=== PATIENT | female | born 1940 | race Caucasian/White ===

== ENCOUNTER 2016-08-29 21:50 | Emergency (ER) | payer MEDICARE ==
[~2016-08-29] VITALS: Ht 160 cm; Wt 59.0 kg
[2016-08-29 22:04] VITALS: BP 142/82; PULSE 63; RESP 16; O2SAT 98
--- NOTE | 2016-08-29 23:54 | ED.REPORT ---
HPI-Trauma Minor / Fall Date of Service August 29, 2016 ED Provider: Dr. Ehsan Reece D.O. A 75 year old female presents to the ED accompanied by her with head trauma after a ground level fall around 1999 this evening. The patient does not remember the fall but she has problems with her memory at baseline. Her son heard the fall and found her on the bathroom floor. She was evaluated by EMS and found to be awake, alert, and well. She declined transport. The patient then developed general malaise, headache, nausea, and imbalance, so her became concerned. She denies chest pain, SOB, neck pain, or other symptoms. Nursing Notes Stated Complaint: FELL, HIT HEAD Chief Complaint: Multiple Trauma/Fall Nursing Notes Reviewed: Yes Allergies: Coded Allergies: No Known Allergies (Unverified , 08/29/16) General Time Seen by MD: 23:54 Chief Complaint Fall, Head injury Hx Obtained From: Patient, Spouse Arrived By: Walk-in Onset Occurred: 1 - 4 hours ago Symptom Duration: Since onset Location: Head Quality: Painful Severity: Current: Moderate Severity: Maximum: Moderate Pertinent Negative: Relieved by nothing Context: Immunizations Unknown Recent Healthcare: No recent doctor visit Past Medical History Past Medical History Memory problems Past Surgical History None reported Smoking History Unknown if Ever Smoker Social History Other Social History: Good social support Ambulatory Status Independent Review of Systems Review of Systems Note: + Head trauma, imbalance Constitutional: Reports: Malaise, Denies: Fever Respiratory: Denies: Non-productive cough, Shortness of breath Musculoskeletal: Denies: Neck pain Neurologic: Reports: Headache Complete sys rev & neg: except as marked. Cardiovascular: Denies: Chest pain GI: Reports: Nausea, Denies: Diarrhea, Vomiting Physical Exam Initial Vital Signs Vital Signs (First) Date Time Temp Pulse Resp B/P Pulse Ox O2 Delivery O2 Flow Rate FiO2 08/29/16 22:04 36.2 63 16 142/82 98 Room Air Initial VS: Reviewed ENT: Conjunctiva normal, No scleral icterus Respiratory: Breath sounds normal, Clear to auscultation, No respiratory distress Cardiovascular: Regular rate & rhythm, Heart sounds normal Skin: Warm, Dry, No cyanosis Neurologic: Alert, Oriented, Nonfocal Psychiatric: Mood/affect normal, Behavior normal, Normal thought content General/Constitutional: Awake, Alert, No acute distress Neck: Supple, Full range of motion, Non-tender, No midline vertebral tend Head / Eyes: Normocephalic Head / Scalp Abnl: Positive: Scalp swollen occipital L, Scalp swollen occipital R, Scalp tender occipital L, Scalp tender occipital R Interpretation & Diagnostics CT Head Interpretation CONCLUSION: Moderate white matter disease with associated atrophy. No acute intracranial abnormality. Transmitted to ED at 08/30/2016 - 12:37:54 AM PDT Study: Head CT no contrast Interpretation / Wet Read by: Interpret - Radiologist (Antonella Fuentes M.D.) Re-Eval/Medical Decision Med Decision/Clinical Course CT head indicated due to patient's age and amnesia of the event Re-Evaluation/Progress : Time of Eval: 00:50 Patient Status: Condition improved Re-Evaluation/Progress Note: Discussed with patient CT results, diagnosis, and plan for discharge. Follow-up and return to the ER instructions given. Patient agrees with plan for care and all questions were addressed. Counseled Regarding: Diagnosis, Need for follow-up, When/why to return to ED Discharge & Departure Impression: Primary Impression: Blunt head trauma Encounter type: initial encounter Qualified Code: S09.8XXA - Other specified injuries of head, initial encounter Disposition: Home Discharge Condition All VS Reviewed: Yes Condition: Improved Patient Instructions: Concussion (ED) Additional Instructions: Thank you for entrusting us with your care. Your CT did not show signs of a hemorrhage. Stand up slowly. Please take Tylenol as directed for headache. Call your primary care provider tomorrow for a follow-up appointment. Return to the ER with any new or worsening symptoms. Referrals: NOPCP (PCP) [facility] Attestation Portions of this note were transcribed by Denisha Pang. I, Dr. Reece, personally performed the history, physical exam, and medical decision-making; I reviewed and confirmed the accuracy of the information in the transcribed note. Signed by: Casey Cline, 08/30/2016, 01:35 copies to: [facility] Ehsan Reece DO August 29, 2016 23:54 DENISHA PANG August 30, 2016 00:01
--- NOTE | 2016-08-30 11:17 | DRSVH ---
PROCEDURE: CT BRAIN WITHOUT CONTRAST ([id number]) INDICATIONS: head injury, amnesia TECHNIQUE: Noncontrast 4.5 mm thick angled axial sections acquired from the foramen magnum to the vertex, with c oronal reformats. COMPARISON: None. FINDINGS: Image quality: Excellent. CSF spaces: Basal cisterns are patent. No extra-axial fluid collections. The ventricles are symmet claudine in size and shape. Brain: No intracranial bleeds or masses. There is cerebral volume loss for age, with resultant vent ricular and sulcal prominence. There are periventricular and deep white matter chronic small vessel ischemic changes. There is intracranial internal carotid artery atherosclerosis. Skull and face: Calvarium and visualized facial bones appear intact, without suspicious lesions. Sinuses: Visualized sinuses and mastoids are clear. IMPRESSION: 1. No acute intracranial process. 2. Moderate atrophy and chronic microvascular ischemic changes. Dictated by: Lidya Leon M.D. on 08/30/2016 at 11:15 Approved by: Lidya Leon M.D. on 08/30/2016 at 11:15
== END 2016-08-30 01:05 | disposition home or self-care (01) ==
LOC: SED 21:50
DX: S09.8XXA Other specified injuries of head, initial encounter (principal); W18.39XA Other fall on same level, initial encounter; Y93.89 Activity, other specified; Y92.002 Bathroom of unspecified non-institutional (private) residence as the place of occurrence of the external cause; Y99.8 Other external cause status

== ENCOUNTER 2016-09-08 09:54 | Emergency (ER) | payer MEDICARE ==
[~2016-09-08] VITALS: Ht 157.5 cm; Wt 61.3 kg
--- NOTE | 2016-09-08 10:03 | ED.REPORT ---
HPI-Syncope Date of Service September 08, 2016 ED Provider: Khurram Thibodeaux MD The patient is a 75 year old female with history of memory problems, who was brought to the emergency department by EMS after she had a near syncopal episode prior to arrival. The patient was walking to the restroom at home when she suddenly collapsed. Her was walking behind her and was able to help her to the ground. She denies any injuries. The patient states, "I am just not feeling well." She complains of lightheadedness, generalized weakness, and "funny feeling" in her head. She had a similar episode 1-2 weeks ago. She denies chest pain, shortness of breath, palpitations, nausea, vomiting or diaphoresis. She denies recent illnesses, dysuria, diarrhea, appetite changes, bloody or tarry stools. She denies new medication changes. Nursing Notes Stated Complaint: NEAR SYNCOPAL Nursing Notes Reviewed: Yes ([employer], meds not reconciled) Allergies: Coded Allergies: No Known Allergies (Unverified , 08/29/16) General Time Seen by Provider: 10:04 Chief Complaint Collapsed suddenly Hx Obtained From: Patient, Spouse, EMS Arrived By: Ambulance Onset Occurred: Just prior to arrival Symptom Duration: 1 - 15 minutes Progression Since Onset: Resolved Severity: Current: No pain currently Severity: Maximum: No pain Recent Healthcare: No recent hospitalization Similar Sx Previous: Yes Past Medical History Past Medical History Memory problems Past Surgical History None reported Family History Noncontributory Smoking History Unknown if Ever Smoker Social History Other Social History: Good social support, , Local resident Ambulatory Status Independent Review of Systems Review of Systems Note: +"funny feeling" in her head Constitutional: Reports: Weakness - generalized, Denies: Chills, Fever Ears / Nose / Throat: Denies: Nasal congestion Respiratory: Denies: Non-productive cough, Shortness of breath Cardiovascular: Denies: Chest pain, Palpitations GI: Denies: Abdominal pain, Anorexia, Bloody/tarry stool, Diarrhea, Hematemesis , Hematochezia, Melena, Vomiting Neurologic: Reports: Problem walking (unsteady), Syncope (near), Denies: Dizziness Complete sys rev & neg: except as marked. Additional Review of Systems Female: Denies: Dysuria Physical Exam Initial Vital Signs Vital Signs (First) Date Time Temp Pulse Resp B/P Pulse Ox O2 Delivery O2 Flow Rate FiO2 09/08/16 10:04 36.4 63 18 154/75 100 Room Air Initial VS: Reviewed, Unavailable (none on chart, ordered) ENT: Mucous membranes moist, Conjunctiva normal, No scleral icterus Neck: Supple, Non-tender, Full range of motion Abdomen / GI: Soft, Non-tender, No guarding, No rebound, No distention Lymphatic: No lymphadenopathy Upper Extremities: Vascular intact, Neuro intact, No swelling, No tenderness Skin: Warm, Dry, No cyanosis Psychiatric: Mood/affect normal, Behavior normal, Normal thought content General/Constitutional: Awake, Alert, Well appearing Respiratory / Chest: Atraumatic, Breath sounds NL, Breath sounds = bilat, No respiratory distress, No rales, No rhonchi, No wheezing Cardiovascular: Heart rate NL, Regular rhythm, Heart sounds NL, No murmurs, Cap refill not delayed, Peripheral circulation NL Lower Extremity / Pelvis / MS: Inspection NL, No swelling, Non-tender, No erythema, No deformity, Neurologic intact, Vascular intact, No edema Neurologic: Oriented X3, Speech NL, No motor deficits, No sensory deficits, CN II - XII intact, Cerebellar NL No ataxia. Mild memory loss which by records is likely chronic. Head / Eyes: Atraumatic, Normocephalic, PERRL, EOMI Interpretation & Diagnostics Lab Results Interpretation Result Diagram: 09/08/16 1020 09/08/16 1020 Test 09/08/16 10:20 09/08/16 10:59 09/08/16 11:37 White Blood Count 2.7th/mm3 (3.8-10.1) Red Blood Count 3.99mil/mm3 (3.90-5.20) Hemoglobin 12.8g/dL (12.0-15.6) Hematocrit 37.8% (35.0-46.0) Mean Corpuscular Volume 94.7fL (81-100) Mean Corpuscular Hemoglobin 32.1pg (27.0-35.0) Mean Corpuscular Hemoglobin Concent 33.9% (32.0-37.0) Red Cell Distribution Width 12.8% (12.3-15.4) Platelet Count 181bil/L (150-400) Neutrophils (%) (Auto) 41.8% (40-74) Lymphocytes (%) (Auto) 36.8% (14-46) Monocytes (%) (Auto) 12.8% (4-12) Eosinophils (%) (Auto) 7.5% (0-5) Basophils (%) (Auto) 1.1% (0-3) Sodium Level 135mEq/L (134-144) Potassium Level 4.4mEq/L (3.5-5.2) Chloride Level 99mEq/L (97-108) Carbon Dioxide Level 22mmol/L (18-29) Blood Urea Nitrogen 16mg/dL (8-27) Creatinine 1.01mg/dL (0.57-1.00) Estimat Glomerular Filtration Rate 76mL/min (>59) Glucose Level 103mg/dL (60-99) Calcium Level 9.2mg/dL (8.5-10.1) Total Bilirubin 0.5mg/dL (0.0-1.2) Aspartate Amino Transf (AST/SGOT) 27U/L (0-50) Alanine Aminotransferase (ALT/SGPT) 15U/L (0-32) Alkaline Phosphatase 50U/L (25-165) Troponin T 0.010ug/L (0.0-0.011) Total Protein 6.8g/dL (6.4-8.4) Albumin 3.8g/dL (3.4-5.0) Hold Jaimes Top Tube Received (Received) Urine Color Straw (YELLOW) Urine Appearance Hazy (CLEAR,HAZY) Urine pH 7.0 (5.0-8.0) Urine Specific [place] 1.010 (1.003-1.035) Urine Protein Negativemg/dL (NEG,TRACE) Urine Glucose (UA) Negativemg/dL (NEGATIVE) Urine Ketones Negativemg/dL (NEGATIVE) Urine Occult Blood Negative (NEGATIVE) Urine Nitrite Negative (NEGATIVE) Urine Bilirubin Negative (NEGATIVE) Urine Urobilinogen Normalmg/dL (NORMAL) Urine Leukocyte Esterase Negative (NEGATIVE) Urine RBC 0-2/hpf (0-2) Urine WBC 0-5/hpf (0-5) Urine Epithelial Cells Occasional/hpf (NONE-MOD) Urine Crystals None seen (NONE SEEN) Urine Bacteria None/hpf (NONE-FEW) Urine Hyaline Casts None/lpf (NONE) Urine Granular Casts None seen (NONE SEEN) Urine Waxy Casts None seen (NONE SEEN) Urine Red Blood Cell Casts None seen (NONE SEEN) Urine White Blood Cell Casts None seen (NONE SEEN) Urine Mucus None seen (None Seen) Urine Trichomonas None seen (NONE SEEN) Urine Yeast None (NONE SEEN) Urinalysis Comment None Urine Culture Reflexed Not indicated Lab Results Interpretation: CBC nonspecific leukopenia CMP normal Troponin negative UA negative ECG Interpretation ECG Interpretation: Sinus bradycardia No ischemic changes No prior for comparison Time: 10:33 Interpreted by: ED physician X-Ray Chest Interpretation Chest Xray Interpretation: IMPRESSION: No acute disease, no sign of aspiration or trauma. Dictated by: Yared Celaya M.D. on 09/08/2016 at 10:43 Interpretation / Wet Read by: Interpret - Radiologist CT Head Interpretation IMPRESSION: 1. No acute intracranial hemorrhage. 2. Chronic small vessel ischemic changes moderate parenchymal volume loss are similar to the prior study. Dictated by: El Quigley M.D. on 09/08/2016 at 10:00 Study: Head CT no contrast Interpretation / Wet Read by: Interpret - Radiologist Re-Eval/Medical Decision Med Decision/Clinical Course This is a 75-year-old female who had a near syncope and/or mild clamps were going to the bathroom today. She did not fully lose consciousness, but just reports she just "did not feel well" she cannot be more specific as to what this meant, and denies specific chest pain, shortness of breath, fever, chills, nausea, vomiting, diarrhea, dysuria, GI blood loss etc. She has had a previous event a couple weeks ago her EMS came out and she refused transport. She reports her PCP as either retired her left side she does not have a current doctor. She denies any Medication changes. On exam she has normal vitals and clinically appears well. She has no findings of injury. She does not have a heart murmur. She has no findings of heart failure or venous thrombi embolism. Abdomen soft nontender and she generally appears well. On orthostatic testing she had mild dizziness, nonspecific-and certainly not vertiginous. She also had a drop in her blood pressure from 150- 110, but no increase in her heart rates of his represents marginal/potential orthostasis with clinical symptoms of dizziness, but it is meaning is otherwise unclear. She received empiric liter of saline-then she retested and she did not have any dizziness resolved that argued that may indeed been a component of dehydration. A laboratory evaluation that was unremarkable except for nonspecific mild leukopenia, but she is not neutropenic. She reported a fall recently, and a trace headache at times should not have a headache now, so CT was obtained that was negative for subdural or other acute pathology. Chest x-ray is also negative, urine was negative. She was seen by physical therapy and did well without any difficulties. Her EKG is entirely normal, she had a mild bradycardia and no evidence of pathologic Bradycardia. Tylenol definitive cause for today's presentation is unclear. She has no red flags for serious pathology, she had trace orthostasis did resolve with high hydration-although she did not have clear clinical reason to be dehydrated. She is being discharged. She does not have a car PCP so he called the next unassigned doctor when consider trying to get her in to see Hiren Alexanderseven indicated they will call the patient in to be seen. As discharged asymptomatic in good condition. Return, and routine precautions reviewed. Source of Hx: Old records, EMS, Family Re-Evaluation/Progress #1: Time of Eval: 11:25 Re-Evaluation/Progress Note: PT evaluated the patient. Her blood pressure was 140/73 in supine and 124/73 with standing. She was not symptomatic. Re-Evaluation/Progress #2: Time of Eval: 13:00 Re-Evaluation/Progress Note: Discussed plan for discharge. All questions were addressed. Differential Diagnosis: Positive: Dehydration, Orthostasis, Negative: Abdominal aortic aneurysm, Acute coronary syndrome, Anemia, Arrhythmia, Chest pain, acute, Dysrhythmia, Electrolyte disorder, Head trauma, Hypoglycemia, Intracranial bleed, Malingering, Myocardial infarction, Pneumothorax, Prolonged QT syndrome, Pulmonary embolus, Sepsis, Subarachnoid hemorrhage Counseled Regarding: Diagnosis, Lab results, Need for follow-up, When/why to return to ED Discharge & Departure Impression: Primary Impression: Near syncope Disposition: Home Discharge Condition All VS Reviewed: Yes Condition: Stable Additional Instructions: 1. A dangerous cause of the symptoms and near collapse today was not identified. 2. Your blood tests are normal except for mildly low white cell count of 2.7. This is unlikely to have anything to do with your presentation today. 3. You were mildly "orthostatic" which means that you got dizzy and your blood pressure dropped slightly(although still normal)-which can sometimes indicate a component of dehydration. And it resolved with IV fluids in the department. 4. Brain CT scan was normal. However it is worth talking with your primary care doctor to discuss an MRI. 5. I have called over this such up with a referral to Dr. Oliva, this so that you have a primary care physician. His office will call you with a time to come in. If for any reason you have not heard from them by tomorrow, call them at the number below - and if you have any difficulties, call us at [phone]. 6. Drink plenty of fluids. Return if new or worsening symptoms occur Referrals: Hiren Oliva MD Attestation Portions of this note were transcribed by Ofe Galeana. I, Dr. Thibodeaux personally performed the history, physical exam and medical decision-making; I reviewed and confirmed the accuracy of the information in the transcribed note. Signed by: Casey Clemens, 09/08/2016 at 1400. copies to: Hiren Oliva MD, Matthew F MD September 08, 2016 10:03 Ofe Galeana September 08, 2016 10:10
[2016-09-08 10:04] VITALS: BP 154/75; PULSE 63; RESP 18; O2SAT 100
[2016-09-08 10:14] VITALS: BP 154/75; PULSE 63
[2016-09-08 10:15] VITALS: BP 106/66; PULSE 70
[2016-09-08] MEDS ORDERED: 0.9% Sodium Chloride 1,000 ML IV ONE (10:20)
[2016-09-08 10:30] LABS: BASOPHILS % (AUTO) 1.1 % (0-3); EOSINOPHILS % (AUTO) 7.5 % (0-5); MONOCYTES % (AUTO) 12.8 % (4-12); Mean Corpuscular Hemoglobin 32.1 pg (27.0-35.0); Mean Corpuscular Volume 94.7 fL (81-100); NEUTROPHILS % (AUTO) 41.8 % (40-74); Platelet Count 181 bil/L (150-400)
[2016-09-08 10:52] LABS: TROPONIN T 0.01 ug/L (0.0-0.011)
--- NOTE | 2016-09-08 10:54 | DRSVH ---
PROCEDURE: X-RAY CHEST ONE VIEW, PORTABLE ([id number]) INDICATIONS: syncope TECHNIQUE: One view of the chest was acquired. COMPARISON: None. FINDINGS: Surgical changes and devices: None. Lungs and pleura: No pleural effusions or pneumothorax. Lungs are clear. Mediastinum: Mediastinal contours appear normal. Heart size is normal. Bones and chest wall: No suspicious bony lesions. Overlying soft tissues appear unremarkable. IMPRESSION: No acute disease, no sign of aspiration or trauma. Dictated by: Yared Celaya M.D. on 09/08/2016 at 10:43 Approved by: Yared Celaya M.D. on 09/08/2016 at 10:53
--- NOTE | 2016-09-08 11:03 | DRSVH ---
PROCEDURE: CT BRAIN WITHOUT CONTRAST ([id number]) INDICATIONS: fall TECHNIQUE: Noncontrast 4.5 mm thick angled axial sections acquired from the foramen magnum to the vertex, with c oronal reformats. COMPARISON: [facility], CT, CT BRAIN WO CON, 08/30/2016, 0:10. FINDINGS: Image quality: Diagnostic Brain: There is no acute intra-axial or extra-axial hemorrhage. No extra-axial fluid collection is i dentified. There is no midline shift or mass effect. The orbits are grossly unremarkable. No large areas of diffusely decreased attenuation are evident within the brain to suggest diffuse cer ebral edema. Scattered areas of low-attenuation within the periventricular and deep white matter of the supratentorial brain are present. The ventricles and cortical sulci are moderately prominent. Bones: Calvarium and visualized facial bones are grossly intact. The imaged paranasal sinuses and m astoid air cells are clear. IMPRESSION: 1. No acute intracranial hemorrhage. 2. Chronic small vessel ischemic changes moderate parenchymal volume loss are similar to the prior s keyady. Dictated by: El Quigley M.D. on 09/08/2016 at 10:00 Approved by: El Quigley M.D. on 09/08/2016 at 10:01
[2016-09-08 11:28] VITALS: BP 124/73; PULSE 57; RESP 18; O2SAT 98
[2016-09-08 11:54] LABS: APPEARANCE,URINE HAZY (CLEAR,HAZY); COLOR,URINE STRAW (YELLOW); OCCULT BLOOD,URINE NEGATIVE (NEGATIVE); UROBILINOGEN,URINE NORMAL (NORMAL)
--- NOTE | 2016-09-08 13:42 | NUR ---
Evaluation completed. Please go to "Notes" then click on "Assessments and Notes" (bottom left corner of screen). Then select appropriate discipline tab on top of screen.
[2016-09-08 13:50] VITALS: BP 124/73; PULSE 78; RESP 18; O2SAT 100
== END 2016-09-08 13:56 | disposition home or self-care (01) ==
LOC: SED 09:54 → EDBD 09:54 → EDUNIT# 09:54 → SED 13:56
DX: R55 Syncope and collapse (principal); R53.1 Weakness; R41.3 Other amnesia; Z90.89 Acquired absence of other organs
CPT/HCPCS: 36415; 70450; 71010; 80053; 81000; 84484; 85025; 93005; 96360; 97161; 99285; J7030